=== PATIENT | female | born 1965 | race African-American/Black ===

== ENCOUNTER 2020-11-02 10:34 | Outpatient (CLI) | payer OTHER, SELFPAY | END 2020-11-02 10:35 | disposition home or self-care (01) | LOC: ANHBWCAUD 10:34 | PROVIDERS: PCP Nurse Practitioner Family; Visit Provider Nurse Practitioner Family | DX: H91.93 Unspecified hearing loss, bilateral (principal) | CPT/HCPCS: 92557; 92567 ==

== ENCOUNTER 2020-11-19 09:50 | Outpatient (RCR) | payer OTHER, SELFPAY | END 2021-02-17 23:59 | disposition home or self-care (01) | LOC: ANHBWCAUD 09:50 | PROVIDERS: PCP Nurse Practitioner Family; Visit Provider Nurse Practitioner Family | DX: Z46.1 Encounter for fitting and adjustment of hearing aid (principal) | CPT/HCPCS: V5160; V5261; V5264 ==